=== PATIENT | male | born 1990 | race Asian ===

== ENCOUNTER 2024-01-03 11:17 | Emergency (ER) | payer MEDICAID, OTHER ==
[2024-01-03 11:27] VITALS: BP 138/94; O2SAT 100
--- NOTE | 2024-01-03 13:43 | ED Physician Documentation ---
History of Present Illness - Stated complaint Stated Complaint: NECK BUMP PX - Chief complaint Chief Complaint: General - Additonal information Additional information: 33-year-old male with no pertinent past medical history who presents emergency department with left neck lump. He went to walk-in clinic and was prescribed Augmentin 3 days ago but feels like he said no improvement of symptoms. No fevers or chills no nausea or vomiting he said that he has had this happen once before his chest that self resolved. No history of MRSA or staph infection. PD PAST MEDICAL HISTORY - Past Medical History Past Medical History: No - Past Surgical History Past Surgical History: Yes General: Appendectomy - Present Medications Home Medications: Ambulatory Orders Medication Instructions Recorded Confirmed Sulfamethox/Trimeth 800/160 1 tablet PO BID 7 Days #13 tablet 01/03/24 [Bactrim Ds] - Allergies Allergies/Adverse Reactions: Allergies Allergy/AdvReac Type Severity Reaction Status Date / Time No Known Drug Allergies Allergy Verified 01/03/24 11:22 - Social History Does the pt smoke?: Yes Smoking Status: Current every day smoker Does the pt drink ETOH?: Yes Does the pt have substance abuse?: No - Immunizations Immunizations are current?: Yes - POLST Patient has POLST: No PD ED PE NORMAL - Vitals Vital signs reviewed: Yes - General General: Alert and oriented X 3, No acute distress, Well developed/nourished PD ED PE EXPANDED - Neck Neck: Other (left anterior/medial neck/chin region 2-3cm induration with fluctuance and minimal erythema). No: Stiff neck, JVD present, Adenopathy, Bony TTP, Limited ROM Results - Vitals Vitals: Vital Signs - 24 hr 01/03/24 11:22 Temperature 36.5 C Heart Rate 88 Respiratory 16 Rate Blood Pressure 138/94 H O2 Saturation 100 Oxygen O2 Source Room air Procedures - Abscess I&D (location) left neck Preparation: Lidocaine 1%, With epi Incision: Incised with scalpel, Loculations broken Other: Pt tolerated well, Dressing applied, Antibiotic prescribed PD Medical Decision Making - ED course ED course: 33-year-old male presents emergency department for left neck/chin induration and swelling. Patient has been on Augmentin now for a total of 3 days with little to no improvement. He was originally told that it was a cyst and has had something similar happen in his left chest region a couple years ago. I incised and drained the most fluctuant point of the swelling and I was initially able to remove purulent drainage and then ultimately thicker texture discharge was extracted and appears to be sebaceous cyst. I attempted to remove the majority of the sac but I informed the patient that unfortunately there is likely still remaining sac and it and this will likely recur. Band-Aid was placed over the laceration with bacitracin patient told to follow-up with primary care provider or establish care with primary care provider soon as possible patient was started on Bactrim And a prescription of Bactrim was sent to his preferred pharmacy and patient was told to discontinue the Augmentin. Return precautions given all questions answered patient safe for discharge. Departure - Departure Disposition: 01 Home, Self Care Clinical Impression: Infected cyst of skin Instructions: ED Cyst Sebaceous Infec Abx Tx, ED Cyst Sebaceous Infec IandD Prescriptions: Sulfamethox/Trimeth 800/160 [Bactrim Ds] 1 tablet PO BID 7 Days #13 tablet Comments: Thank you for trusting us with your care, we have evaluated you for The cyst on the left portion of her neck. We have incised and drained the infection from the cyst and attempted to remove most of the cyst that we are able to.Please establish care with a primary care provider soon as possible. Apply warm compresses to the cyst start taking Bactrim twice a day for the next 7 days I have sent this prescription to [facility] in [place]. You took the first dose here in the emergency department you will start the second dose tomorrow morning and thereafter take it twice a day for the next 6 to 7 days, until the medications worn out. If you start to notice any worsening symptoms such as severe pain, drainage that is yellow/green, fevers or chills, redness that is swelling, or any other concerning signs or symptoms of infection please come back to the emergency department for further evaluation. Forms: PCP List Discharge Date/Time: 01/03/24 15:39
[2024-01-03] MEDS: LIDOCAINE 1%-EPI 1:100000 20 ML MDV TD STA (14:24)
[2024-01-03] MEDS: SULFAMETH/TRIMETH DS 800/160 MG TABLET PO STA (15:34)
== END 2024-01-03 15:39 | disposition home or self-care (01) ==
LOC: ED 11:17
DX: L72.9 Follicular cyst of the skin and subcutaneous tissue, unspecified (principal); F17.200 Nicotine dependence, unspecified, uncomplicated
CPT/HCPCS: 10060; 99283; A9270